=== PATIENT | male | born 1960 | race Caucasian/White ===

== ENCOUNTER 2017-06-17 11:37 | Inpatient (IN) | payer OTHER ==
[~2017-06-17] VITALS: Ht 188 cm; Wt 108.9 kg
[2017-06-17] MEDS ORDERED: ATORVASTATIN CA20 MG PO (20:42)
[2017-06-17] MEDS ORDERED: AVAPRO300 MG PO (20:42)
[2017-06-17] MEDS ORDERED: AMLODIPINE BESYL5 MG PO (20:46)
[2017-06-17] MEDS ORDERED: FUROSEMIDE20 MG PO (20:46)
[2017-06-17] MEDS ORDERED: ASA81 MG PO (20:46)
[2017-06-17] MEDS ORDERED: METHYLPREDNISOLO4 MG PO (20:47)
[2017-07-12] MEDS ORDERED: BACTRIM DS TAB1 EACH PO (17:02)
[2017-07-12] MEDS ORDERED: XARELTO20 MG PO (17:04)
[2017-07-12] MEDS ORDERED: LEVALBUTEROL TA15 GM IH (17:04)
[2017-07-12] MEDS ORDERED: FUROSEMIDE20 MG PO (17:05)
[2017-07-12] MEDS ORDERED: CARVEDILOL6.25 MG PO (17:07)
[2017-07-12] MEDS ORDERED: ATORVASTATIN CA20 MG PO (17:08)
== END 2017-07-12 18:02 | disposition home or self-care (01) | DRG 207 ==
LOC: ER 11:37 → ICU-2 20:02 → ICU 06-22 21:34 → MEDI 07-01 23:05
PROC: 4A033R1 Measurement of Arterial Saturation, Peripheral, Percutaneous Approach (ICD-10-PCS; 2017-06-17)
PROC: 3E0F7GC Introduction of Other Therapeutic Substance into Respiratory Tract, Via Natural or Artificial Opening (ICD-10-PCS; 2017-06-17)
PROC: BW24Y0Z Computerized Tomography (CT Scan) of Chest and Abdomen using Other Contrast, Unenhanced and Enhanced (ICD-10-PCS; 2017-06-17)
PROC: BW21Y0Z Computerized Tomography (CT Scan) of Abdomen and Pelvis using Other Contrast, Unenhanced and Enhanced (ICD-10-PCS; 2017-06-17)
PROC: B246ZZZ Ultrasonography of Right and Left Heart (ICD-10-PCS; 2017-06-17)
PROC: 5A09457 Assistance with Respiratory Ventilation, 24-96 Consecutive Hours, Continuous Positive Airway Pressure (ICD-10-PCS; 2017-06-17)
PROC: 5A1955Z Respiratory Ventilation, Greater than 96 Consecutive Hours (ICD-10-PCS; principal; 2017-06-18)
PROC: 0BH17EZ Insertion of Endotracheal Airway into Trachea, Via Natural or Artificial Opening (ICD-10-PCS; 2017-06-18)
PROC: 02HV33Z Insertion of Infusion Device into Superior Vena Cava, Percutaneous Approach (ICD-10-PCS; 2017-06-18)
PROC: BW28Y0Z Computerized Tomography (CT Scan) of Head using Other Contrast, Unenhanced and Enhanced (ICD-10-PCS; 2017-06-20)
PROC: B246YZZ Ultrasonography of Right and Left Heart using Other Contrast (ICD-10-PCS; 2017-06-25)
PROC: BB24ZZZ Computerized Tomography (CT Scan) of Bilateral Lungs (ICD-10-PCS; 2017-06-28)
PROC: 4A12X4Z Monitoring of Cardiac Electrical Activity, External Approach (ICD-10-PCS; 2017-07-01)
PROC: BB24Y0Z Computerized Tomography (CT Scan) of Bilateral Lungs using Other Contrast, Unenhanced and Enhanced (ICD-10-PCS; 2017-07-05)
DX: J96.01 Acute respiratory failure with hypoxia (principal); J18.9 Pneumonia, unspecified organism; I50.33 Acute on chronic diastolic (congestive) heart failure; J44.1 Chronic obstructive pulmonary disease with (acute) exacerbation; J90 Pleural effusion, not elsewhere classified; E87.1 Hypo-osmolality and hyponatremia; J96.02 Acute respiratory failure with hypercapnia; F17.210 Nicotine dependence, cigarettes, uncomplicated; R60.1 Generalized edema; I27.29 Other secondary pulmonary hypertension; I11.0 Hypertensive heart disease with heart failure; K59.09 Other constipation; I48.0 Paroxysmal atrial fibrillation; R91.8 Other nonspecific abnormal finding of lung field; Z78.1 Physical restraint status
CPT/HCPCS: 240; 70496

== ENCOUNTER 2017-09-03 09:15 | Outpatient (CLI) | payer OTHER ==
[~2017-09-03 09:15] MED LIST: AMLODIPINE BESYL5 MG PO; ASA81 MG PO; ATORVASTATIN CA20 MG PO; AVAPRO300 MG PO; BACTRIM DS TAB1 EACH PO; CARVEDILOL6.25 MG PO; FUROSEMIDE20 MG PO; LEVALBUTEROL TA15 GM IH; METHYLPREDNISOLO4 MG PO; XARELTO20 MG PO
== END 2017-09-03 09:18 | disposition home or self-care (01) ==
LOC: NUCLEAR 09:15
DX: R91.1 Solitary pulmonary nodule (principal); J43.2 Centrilobular emphysema
CPT/HCPCS: 78815; A9552

== ENCOUNTER → 2017-10-08 14:43 | Outpatient (CLI) | payer OTHER | END | disposition home or self-care (01) | LOC: T RESPIRAT 14:43 | DX: D64.89 Other specified anemias (principal); R06.00 Dyspnea, unspecified ==

== ENCOUNTER 2019-01-25 12:39 | Inpatient (IN) | payer OTHER ==
[~2019-01-25] VITALS: Ht 188 cm; Wt 116.1 kg
[2019-01-25] MEDS ORDERED: LIPITOR40 MG (12:52)
[2019-01-25] MEDS ORDERED: COZAAR50 MG (12:52)
[2019-01-25] MEDS ORDERED: VOLTAREN100 GM (12:53)
[2019-01-25] MEDS ORDERED: ELIQUIS2.5 MG (12:53)
[2019-01-25] MEDS ORDERED: LEVO-T100 MCG (12:53)
[2019-01-25] MEDS ORDERED: NEURONTIN300 MG (12:53)
--- NOTE | 2019-01-25 12:55 | NUR ---
SE RECIBE PACIENTE EL MISMO ALERTA Y ORIENTADO INDICA FUE REFERIDO POR ONCOLOGO POR APARENTE LIQUIDO EN PULMONES. SE COLOCA PACIENTE EN AREA DE OBSERVACION PARA EVALUACION MEDICA.
--- NOTE | 2019-01-25 15:26 | NUR ---
SE RECIBE PTE DLE TURNO ANTERIOR, ALERTA Y ORIENTADO X 3 ESFERAS, EN CAMA NIVEL MAS BAJO, JAY DE IDENTIFICACION Y BARANDAS LEEVADAS POR PRECAUCION. SE OBSERVA PTE CON CANULA NASAL. PTE PENDIENTE A RE EVALUACION MEDICA.
--- NOTE | 2019-01-25 16:25 | NUR ---
MS Kaplan ROBB ORIENTA SOBR ESTELLE [place] Y REALIZA PRUEBAS DE LABORATORIO SEGUNN ORDEN MEDICA Y SIGUIENDO MEDIDAS ASEPTICAS.
== END 2019-01-27 15:18 | disposition home or self-care (01) | DRG 181 ==
LOC: ER 12:39 → MEDJ 19:49
PROVIDERS: ADMIT Internal Medicine
PROC: BB24ZZZ Computerized Tomography (CT Scan) of Bilateral Lungs (ICD-10-PCS; principal; 2019-01-25)
PROC: 4A033R1 Measurement of Arterial Saturation, Peripheral, Percutaneous Approach (ICD-10-PCS; 2019-01-25)
PROC: 3E0F7GC Introduction of Other Therapeutic Substance into Respiratory Tract, Via Natural or Artificial Opening (ICD-10-PCS; 2019-01-26)
DX: C34.32 Malignant neoplasm of lower lobe, left bronchus or lung (principal); J90 Pleural effusion, not elsewhere classified; I10 Essential (primary) hypertension; E03.8 Other specified hypothyroidism; E78.49 Other hyperlipidemia

== ENCOUNTER 2019-09-17 13:47 | Emergency (ER) | payer OTHER ==
[~2019-09-17] VITALS: Ht 188 cm; Wt 102.5 kg
[~2019-09-17 13:47] MED LIST changes: +COZAAR50 MG; +ELIQUIS2.5 MG; +LEVO-T100 MCG; +LIPITOR40 MG; +NEURONTIN300 MG; +VOLTAREN100 GM
== END 2019-09-18 12:50 | disposition home or self-care (01) ==
LOC: ER 13:47
DX: R06.02 Shortness of breath (principal); C34.2 Malignant neoplasm of middle lobe, bronchus or lung; J90 Pleural effusion, not elsewhere classified